=== PATIENT | male | born 1955 | race Caucasian/White ===

== ENCOUNTER 2022-03-03 12:27 | Emergency (ER) | payer MEDICARE ==
[2022-03-03 13:24] LABS: HEMOGLOBIN 16.2 gm/dl (14.0-17.5); RED BLOOD COUNT 5.05 M/UL (4.20-5.50); WHITE BLOOD COUNT 6.5 K/UL (4.5-11.0)
[2022-03-03 13:51] LABS: BUN/CREATININE RATIO 22 (0-10)
== END 2022-03-03 17:40 | disposition home or self-care (01) ==
LOC: ER1 12:27
PROVIDERS: Emergency Medicine
DX: U07.1 COVID-19 (principal); I65.21 Occlusion and stenosis of right carotid artery; I65.01 Occlusion and stenosis of right vertebral artery; I10 Essential (primary) hypertension; E78.5 Hyperlipidemia, unspecified; Z86.73 Personal history of transient ischemic attack (TIA), and cerebral infarction without residual deficits; Z88.8 Allergy status to other drugs, medicaments and biological substances; Z79.82 Long term (current) use of aspirin; Z79.02 Long term (current) use of antithrombotics/antiplatelets
CPT/HCPCS: 0240U; 70450; 70496; 70498; 71045; 80053; 82550; 82553; 84484; 85025; 93005; 99284; Q9967